=== PATIENT | male | born 1985 ===

== ENCOUNTER 2019-10-09 05:38 | Day surgery (SDC) | payer OTHER ==
[2019-10-09] MEDS ORDERED: PERCOCET 5-3251 EACH PO (10:10)
[2019-10-09] MEDS ORDERED: NEURONTIN600 M1 PO (10:10)
== END 2019-10-09 12:40 | disposition home or self-care (01) ==
LOC: CIR.AMB 05:38
PROVIDERS: ATTEND Surgery
DX: K80.10 Calculus of gallbladder with chronic cholecystitis without obstruction (principal); Z20.828 Contact with and (suspected) exposure to other viral communicable diseases

== ENCOUNTER 2020-10-07 19:07 | Inpatient (IN) | payer OTHER ==
[~2020-10-07] VITALS: Ht 162.6 cm; Wt 111.6 kg
[~2020-10-07 19:07] MED LIST: AZITHROMYCIN500 MG PO; COLCHICINE0.6 M1 PO; DECADRON6 MG PO; IVERMECTIN3 MG PO; MELATONIN10 MG PO; MUCINEX DM ER1 EAC1 PO; NEURONTIN600 M1 PO; PERCOCET 5-3251 EACH PO; VITAMIN C WIT1000 MG PO; VITAMIN D3-ALO1 EACH PO
== END 2020-10-14 13:28 | disposition expired | DRG 208 ==
LOC: ER 19:07 → MEDJ 10-08 01:48 → ICU 10-14 02:25
PROVIDERS: ADMIT Internal Medicine; ATTEND Internal Medicine
PROC: 8E0ZXY6 Isolation (ICD-10-PCS; 2020-10-08)
PROC: XW033E5 Introduction of Remdesivir Anti-infective into Peripheral Vein, Percutaneous Approach, New Technology Group 5 (ICD-10-PCS; 2020-10-08)
PROC: 4A033R1 Measurement of Arterial Saturation, Peripheral, Percutaneous Approach (ICD-10-PCS; 2020-10-08)
PROC: 3E0F7SF Introduction of Other Gas into Respiratory Tract, Via Natural or Artificial Opening (ICD-10-PCS; 2020-10-08)
PROC: XW0 New Technology, Anatomical Regions, Introduction (ICD-10-PCS; 2020-10-08)
PROC: 4A12X4Z Monitoring of Cardiac Electrical Activity, External Approach (ICD-10-PCS; 2020-10-08)
PROC: 5A09457 Assistance with Respiratory Ventilation, 24-96 Consecutive Hours, Continuous Positive Airway Pressure (ICD-10-PCS; 2020-10-11)
PROC: 5A1935Z Respiratory Ventilation, Less than 24 Consecutive Hours (ICD-10-PCS; principal; 2020-10-14)
PROC: 0BH17EZ Insertion of Endotracheal Airway into Trachea, Via Natural or Artificial Opening (ICD-10-PCS; 2020-10-14)
DX: U07.1 COVID-19 (principal); J12.82 Pneumonia due to coronavirus disease 2019; E86.0 Dehydration; R09.02 Hypoxemia; J10.1 Influenza due to other identified influenza virus with other respiratory manifestations; Z20.822 Contact with and (suspected) exposure to COVID-19; I46.8 Cardiac arrest due to other underlying condition; E66.8 Other obesity